=== PATIENT | female | born 1970 | race Caucasian/White ===

== ENCOUNTER 2020-04-16 10:37 | Emergency (ER) | payer OTHER ==
[2020-04-16 10:47] VITALS: BP 127/81; PULSE 84; TEMP 98.1; BMI 27.4
--- OUTSIDE RECORDS SUMMARY | 2020-04-16 10:57 | XMS ---
:1970 Author Organization [facility] Support Name Relationship Address Phone B G POOLS Unavailable [address] [facility] [phone] [place] [address] VIANNEY MOTHER [address] [facility] [place] [address] Re-disclosure Warning The records that you are about to access may contain information from federally- assisted alcohol or drug abuse programs. If such information is present, then the following federally mandated warning applies: This information has been disclosed to you from records protected by federal confidentiality rules (42 CFR part 2). The federal rules prohibit you from making any further disclosure of this information unless further disclosure is expressly permitted by the written consent of the person to whom it pertains or as otherwise permitted by 42 CFR part 2. A general authorization for the release of medical or other information is NOT sufficient for this purpose. The Federal rules restrict any use of the information to criminally investigate or prosecute any alcohol or drug abuse patient.The records that you are about to access may contain highly sensitive health information, the redisclosure of which is protected by Article 27-F of the [facility] Public Health law. If you continue you may haveaccess to information: Regarding HIV / AIDS; Provided by facilities licensed or operated by the [facility] Office of Mental Health; or Provided by the [facility] Office for People With Developmental Disabilities. If such information is present, then the following [facility] mandated warning applies: This information has been disclosed to you from confidential records which are protected by state law. State law prohibits you from making any further disclosure of this information without the specific written consent of the person to whom it pertains, or as otherwise permitted by law. Any unauthorized further disclosure in violation of state law may result in a fine or custodial sentence or both. A general authorization for the release of medical or other information is NOT sufficient authorization for further disclosure. Insurance Providers Payer name Policy type Policy ID Covered Covered libertarian's Policy P maurice / Coverage libertarian ID relationship to Don Inf ormation type don [employer] MEDICAID [id number]
--- NOTE | 2020-04-16 11:04 | PDOC ---
History of Present Illness - General Chief Complaint: Foreign Body (FB) Stated Complaint: cotton from Qtip stuck in left ear Time Seen by Provider: 04/16/20 10:53 - History of Present Illness Initial Comments: 04/16/20 11:01 49 F with foreign body in L ear. Pt states she was using a q-tip to clean her ear when the cotton tip fell off in her ear. Denies pain. Past History - Medical History Allergies/Adverse Reactions: Allergies Allergy/AdvReac Type Severity Reaction Status Date / Time No Known Allergies Allergy Verified 04/16/20 10:50 Home Medications: Ambulatory Orders Aspirin [ASA -] 81 mg PO DAILY 03/10/16 Enalapril Maleate [Vasotec -] 10 mg PO DAILY 03/10/16 Glyburide 10 mg PO DAILY 03/10/16 Insulin Glargine,Hum.rec.anlog [Lantus (nf)] 30 units SQ HS 03/10/16 Metformin HCl [Glucophage] 1,000 mg PO BID 03/10/16 COPD: No Diabetes: Yes HTN: Yes Hypercholesterolemia: Yes - Reproductive History Is Patient Now?: No - Immunization History Immunization Up to Date: Yes - Psycho-Social/Smoking History Smoking Status: No Smoking History: Never smoked Have you smoked in the past 12 months: No Number of Cigarettes Smoked Daily: 0 Information on smoking cessation initiated: No - Substance Abuse Hx (Audit-C & DAST Scrn) How often the patient has a drink containing alcohol: Never Score: In Men: 4 or > Positive; In Women: 3 or > Positive: 0 Screen Result (Pos requires Nsg. Audit-10AR): Negative In the last yr the pt used illegal drug/Rx for NonMed reason: No Score: Yes response is considered Positive: 0 Screen Result (Positive result requires Nsg. DAST-10): Negative Review of Systems - Review of Systems Comments:: 04/16/20 11:02 "GENERAL/CONSTITUTIONAL: No fever or chills. No weakness. HEAD, EYES, EARS, NOSE AND THROAT: + foreign body in L ear, No change in vision. No ear pain or discharge. No sore throat. CARDIOVASCULAR: No chest pain, no shortness of breath, no loss of consciousness RESPIRATORY: No cough, wheezing, or hemoptysis. GASTROINTESTINAL: No nausea, vomiting, diarrhea or constipation. GENITOURINARY: No dysuria, frequency, or change in urination. MUSCULOSKELETAL: No joint or muscle swelling or pain. No neck or back pain. SKIN: No rash NEUROLOGIC: No vertigo, no change in strength/sensation. ENDOCRINE: No increased thirst. No abnormal weight change. HEMATOLOGIC/LYMPHATIC: No anemia, easy bleeding, or history of blood clots. ALLERGIC/IMMUNOLOGIC: No hives or skin allergy. *Physical Exam - Vital Signs Last Vital Signs Temp Pulse Resp BP Pulse Ox 98.1 F 84 18 127/81 100 04/16/20 10:40 04/16/20 10:40 04/16/20 10:40 04/16/20 10:40 04/16/20 10:40 - Physical Exam 04/16/20 11:02 "GENERAL: Awake, alert, and fully oriented, in no acute distress. HEAD: No signs of trauma EYES: PERRLA, EOMI, sclera anicteric, conjunctiva clear ENT: + Cotton tip of q-tip lodged in L ear canal, Auricles normal inspection, hearing grossly normal, nares patent, oropharynx clear without exudates. Moist mucosa NECK: Nontender, no stepoffs, Normal ROM, supple, no lymphadenopathy, JVD, or masses LUNGS: Breath sounds equal, clear to auscultation bilaterally. No wheezes, and no crackles HEART: Regular rate and rhythm, normal S1 and S2, no murmurs, rubs or gallops ABDOMEN: Soft, nontender, normoactive bowel sounds. No guarding, no rebound. No masses EXTREMITIES: Normal range of motion, no edema. No clubbing or cyanosis. No cords, erythema, or tenderness NEUROLOGICAL: Cranial nerves II through XII intact. 5/5 strength and sensation in all extremities, Normal speech, normal gait, normal cerebellar function SKIN: Warm, Dry, normal turgor, no rashes or lesions noted. Medical Decision Making - Medical Decision Making 04/16/20 11:03 49 F with foreign body in L ear canal. Removed with forceps. TM normal. Pt now asymptomatic. Pt is well appearing, with normal vitals. Clinically stable for DC at this time. I discussed the physical exam findings, ancillary test results and final diagnoses with the patient. I answered all of the patient's questions. The patient was satisfied with the care received and felt comfortable with the discharge plan and treatment plan. The patient agrees to follow up with the primary care physician within 24-72 hours. Discharge - Discharge Information Problems reviewed: Yes Clinical Impression/Diagnosis: Foreign body in ear Condition: Stable Disposition: HOME - Follow up/Referral - Patient Discharge Instructions Patient Printed Discharge Instructions: DI for Removal of Foreign Body From Ear Additional Instructions: Avoid using Q-tips to clean your ears. If you experience ear pain, hearing loss, or any other concerning symptoms, return to the ER immediately. - Post Discharge Activity
== END 2020-04-16 11:07 | disposition home or self-care (01) ==
LOC: FER 10:37
DX: T16.2XXA Foreign body in left ear, initial encounter (principal)
CPT/HCPCS: 99283-25

== ENCOUNTER 2021-03-21 15:25 | Emergency (ER) | payer OTHER ==
[2021-03-21 15:41] VITALS: BP 120/81; PULSE 88; TEMP 97.6; BMI 27.3
[2021-03-21] MEDS ORDERED: ACETAMINOPHEN 325 MG TABLET (FP) PO ONE (16:50)
[2021-03-21] MEDS ORDERED: ACETAMINOPHEN 325 MG TABLET (FP) ONE (17:02)
== END 2021-03-21 19:25 | disposition home or self-care (01) ==
LOC: FER 15:25
DX: M54.5 Low back pain (principal); M25.572 Pain in left ankle and joints of left foot; M48.061 Spinal stenosis, lumbar region without neurogenic claudication; V49.50XA Passenger injured in collision with unspecified motor vehicles in traffic accident, initial encounter
CPT/HCPCS: 72131-TC; 73610-TC-LT-FY; 73630-TC-LT; 84703; 99285-25

== ENCOUNTER 2021-09-27 11:22 | Emergency (ER) | payer OTHER ==
[2021-09-27 11:41] VITALS: BP 147/66; PULSE 88; TEMP 98.4; BMI 27.3
[2021-09-27] MEDS ORDERED: ACETAMINOPHEN 1000 MG/100 ML BAG IVPB ONE (12:17)
[2021-09-27] MEDS ORDERED: METOCLOPRAMIDE HCL INJECTION 10 MG/2 ML VIAL IVPUSH ONE (12:17)
[2021-09-27] MEDS ORDERED: CIPROFLOXACIN 500 MG TABLET (RESTRICTED TO ID) PO ONE (12:17)
[2021-09-27] MEDS ORDERED: KETOROLAC TROMETHAMINE 30 MG/1 ML VIAL IVPUSH ONE (12:17)
[2021-09-27] MEDS ORDERED: KETOROLAC TROMETHAMINE 30 MG/1 ML VIAL IM ONE (12:56)
[2021-09-27] MEDS ORDERED: ACETAMINOPHEN 325 MG TABLET (FP) PO ONE (12:56)
[2021-09-27] MEDS ORDERED: ACETAMINOPHEN 325 MG TABLET (FP) ONE (13:22)
[2021-09-27] MEDS ORDERED: KETOROLAC TROMETHAMINE 30 MG/1 ML VIAL ONE (13:22)
[2021-09-27] MEDS ORDERED: CIPROFLOXACIN 250 MG TABLET (RESTRICTED TO ID) PO ONE (13:22)
[2021-09-27 13:30] LABS: ALBUMIN 3.7 g/dl (3.4-5.0); BILIRUBIN,TOTAL 0.5 mg/dl (0.2-1); CALCIUM 9.4 mg/dl (8.5-10); CREATININE 0.6 mg/dl (0.55-1.3); TOT PROT 7.4 g/dl (6.4-8.2)
[2021-09-27 14:18] LABS: ERYTHROCYTE SEDIMENTATION RATE 51 mm/hr (0-30)
[2021-09-27 14:47] LABS: BASO % 0.5 % (0-2.0); EOS % 1.7 % (0-4.5); HEMATOCRIT 40.9 % (32.4-45.2); HEMOGLOBIN 13.8 GM/dL (10.7-15.3); LYMPH % 24.7 % (8-40); MCH 30.8 pg (25.7-33.7); MCHC 33.8 g/dl (32.0-36.0); MEAN CELL VOLUME 90.9 fl (80-96); MEAN PLT VOLUME 9.9 fl (7.5-11.1); MONO % 9.1 % (3.8-10.2); PLATELET COUNT 276 10^3/uL (134-434); RDW 12.8 % (11.6-15.6); WHITE BLOOD COUNT 7.7 K/mm3 (4.0-10.0)
== END 2021-09-27 13:32 | disposition home or self-care (01) ==
LOC: FER 11:22
PROC: 3E023GC Introduction of Other Therapeutic Substance into Muscle, Percutaneous Approach (ICD-10-PCS; principal; 2021-09-27)
DX: H60.92 Unspecified otitis externa, left ear (principal)
CPT/HCPCS: 36415; 80053; 85025; 85651; 99284-25

== ENCOUNTER 2022-12-16 23:17 | Emergency (ER) | payer OTHER ==
[2022-12-17 00:24] VITALS: BP 135/75; PULSE 75; RESP 17; TEMP 98; BMI 30.4
== END 2022-12-17 01:16 | disposition home or self-care (01) ==
LOC: FER 23:17
DX: S16.1XXA Strain of muscle, fascia and tendon at neck level, initial encounter (principal); S80.02XA Contusion of left knee, initial encounter; M54.2 Cervicalgia; X50.9XXA Other and unspecified overexertion or strenuous movements or postures, initial encounter; Y93.59 Activity, other involving other sports and athletics played individually; Y92.009 Unspecified place in unspecified non-institutional (private) residence as the place of occurrence of the external cause
CPT/HCPCS: 72050-TC-FY; 99283-25